=== PATIENT | male | born 1950 | race Caucasian/White ===

== ENCOUNTER → 2017-11-04 | Outpatient (CLI) | payer MEDICARE, BC | LOC: COL.RAD 11:56 | DX: Z13.6 Encounter for screening for cardiovascular disorders (principal); Z87.891 Personal history of nicotine dependence ==

== ENCOUNTER → 2018-02-16 | Outpatient (CLI) | payer MEDICARE, BC | LOC: COL.VAS 02-11 12:30 | DX: I35.2 Nonrheumatic aortic (valve) stenosis with insufficiency (principal) ==

== ENCOUNTER 2023-07-16 10:36 | Day surgery (SDC) | payer MEDICARE ==
[~2023-07-16] VITALS: Ht 167.6 cm; Wt 84.5 kg
[~2023-07-16 10:36] MED LIST: LR 1,000 ML IV SCH
[2023-07-16] MEDS ORDERED: NS Flush 10 ML SYRINGE PRN ICA (10:45)
[2023-07-16 11:30] LABS: BASO % 0.8 % (0.0-2.0); EOS # 0.1 K/mm3 (0.0-0.7); EOS % 1.9 % (0.0-4.0); GRAN # 3.5 K/mm3 (1.4-6.5); GRAN % 67.1 % (42.2-75.2); HEMATOCRIT 37.5 % (42.0-52.0); HEMOGLOBIN 13.2 g/dl (13.5-18.0); LYMPH # 1.1 K/mm3 (1.2-3.4); LYMPH % 22.1 % (20.0-51.0); MEAN CELL VOLUME 87 fl (80.0-100.0); MEAN CORPUSCULAR HEMOGLOBIN 31 pg (27-31); MEAN CORPUSCULAR HGB CONC 35 g/dl (33.0-37.0); MEAN PLATELET VOLUME 8.6 fl (7.4-10.4); MONO # 0.4 K/mm3 (0.1-0.6); MONO % 7.9 % (1.7-9.3); PLATELET COUNT 179 K/mm3 (130-400); RED BLOOD COUNT 4.31 M/mm3 (4.20-5.60); REDCELL DISTRIBUTION WIDTH-CV 11.8 % (11.5-14.5)
[2023-07-16 11:35] LABS: INR 1.1 (0.8-3.0); PROTHROMBIN TIME 11.9 SECONDS (9.7-12.8)
[2023-07-16 11:47] VITALS: BP 189/75; PULSE 65; TEMP 98.6
[2023-07-16 11:56] LABS: CALCIUM 8.7 mg/dL (8.4-10.2); CREATININE, serum 0.78 mg/dL (0.72-1.25); POTASSIUM 4.2 mmol/L (3.5-4.5)
[2023-07-16] MEDS ORDERED: Lidocaine PF 2% (20 MG/ML) 5 ML VIAL ONE (12:10)
[2023-07-16 13:35] VITALS: BP 151/70; PULSE 59
[2023-07-16 13:45] VITALS: BP 166/76; PULSE 58
[2023-07-16 14:00] VITALS: BP 174/72; PULSE 55
[2023-07-16 14:15] VITALS: BP 181/82; PULSE 62
--- NOTE | 2023-07-16 14:53 | NUR ---
Discharge instructions given to pt.Pt verbalizes understanding.Pt escorted out via wheelchair by this nurse.
[2023-07-16] MEDS ORDERED: NS Flush 10 ML SYRINGE BID ICA SCH (21:00)
== END 2023-07-16 15:04 ==
LOC: COL.CAR 10:36
PROVIDERS: Internal Medicine Cardiovascular Disease
DX: I35.0 Nonrheumatic aortic (valve) stenosis (principal); Z87.891 Personal history of nicotine dependence
CPT/HCPCS: J2704; J7120

== ENCOUNTER 2023-12-19 09:17 | Day surgery (SDC) | payer MEDICARE ==
[~2023-12-19] VITALS: Ht 167.6 cm; Wt 82.6 kg
[~2023-12-19 09:17] MED LIST changes: +Ondansetron 4 MG/2 ML VIAL IV PRN
[2023-12-19] MEDS ORDERED: HYALURONIC ACID (09:46)
[2023-12-19] MEDS ORDERED: Phenylephrine 10 MG/ML VIAL ONE (10:06)
[2023-12-19 11:51] VITALS: BP 164/79; PULSE 56; TEMP 97.9
--- NOTE | 2023-12-19 11:54 | NUR ---
Patient Admission: 931 Patient ambulatory to bay 2 with steady gait, breathing even and unlabored. Pt is alert and oriented, accompanied by his . Consents reviewed and signed by the patient. IV established. LR infusion via gravity at KVO. Call light in reach. Warm blanket provided. Patient reports that he is still having brown colored liquid stool. Dr. Lujan notified. She spoke with patient and they agreed to wait longer for prep to continue working.
[2023-12-19] MEDS ORDERED: Lidocaine PF 2% (20 MG/ML) 5 ML VIAL ONE (12:19)
[2023-12-19 13:18] VITALS: BP 167/75; PULSE 50; TEMP 96.5
[2023-12-19 13:30] VITALS: BP 177/67; PULSE 55
--- NOTE | 2023-12-19 13:53 | NUR ---
Pt returned to bay 2 via cart to recliner in bay at 1318. present in room. VSS-BP high but consistent with pre procedure BP. Pt given muffin and water and tolerated without n/v. Dr Lujan in to visit with pt and pts after procedure. Pt up to bathroom to void. Discharge teaching completed, verbalized understanding. Pts IV removed, pressure dressing applied. Taken via wheelchair to private vehicle for dc home with driving.
== END 2023-12-19 14:00 | disposition home or self-care (01) ==
LOC: SDCO 09:17
DX: Z12.11 Encounter for screening for malignant neoplasm of colon (principal); D12.8 Benign neoplasm of rectum; K57.30 Diverticulosis of large intestine without perforation or abscess without bleeding; Z87.891 Personal history of nicotine dependence
CPT/HCPCS: J2371; J2704; J7120